=== PATIENT | female | born 1985 | race Caucasian/White ===

== ENCOUNTER 2016-10-13 22:40 | Emergency (ER) | payer OTHER | END 2016-10-14 09:23 | disposition home or self-care (01) | LOC: CED 22:40 | DX: F15.10 Other stimulant abuse, uncomplicated (principal); F41.9 Anxiety disorder, unspecified; Z90.49 Acquired absence of other specified parts of digestive tract; F17.200 Nicotine dependence, unspecified, uncomplicated; F32.9 Major depressive disorder, single episode, unspecified | CPT/HCPCS: 82947; 96372; 99284; J3486 ==